=== PATIENT | male | born 1935 | race Caucasian/White ===

== ENCOUNTER 2016-12-29 20:46 | Emergency (ER) | payer MEDICARE, OTHER ==
[~2016-12-29] VITALS: Ht 167.6 cm; Wt 81.0 kg
[~2016-12-29 20:46] MED LIST: AMLO5TAB4 PO; DUTA0.5C PO; LOSA50TA2 PO; OMEP40CA3 PO; TAMS-14
[2016-12-29 20:58] VITALS: Ht 167.6 cm; Wt 81.0 kg
[2016-12-29] MEDS ORDERED: IBUPROFEN 600 MG TAB PO ONE (21:30)
--- NOTE | 2016-12-29 22:26 | ERA ---
ER Documentation Chief Complaint Date/Time DATE: 12/29/16 TIME: 22:25 Chief Complaint cough and fever HPI The patient is a 81-year-old male, presenting to the ER because of cough, subjective fever for 3 days. He denies headache, neck pain, chest pain, dyspnea , chest pain, abdominal pain, vomiting, dysuria, diarrhea. He does not smoke nor drink Past medical history: Hypertension, BPH Past medical history: Cholecystectomy, history of ERCP ROS All systems reviewed and are negative except as per history of present illness. Medications Home Meds Active Scripts Benzonatate* (Tessalon Perle*) 100 Mg Capsule, 100 MG PO TID, #14 CAP Prov:DESIRE BATRES MD 12/30/16 Azithromycin* (Zithromax*) 250 Mg Tablet, 250 MG PO .ZPACK DIRECTED, #6 TAB TAKE 500 MG (2 TABS) THE FIRST DAY THEN 250 MG (1 TAB) DAYS 2-5 Prov:DESIRE BATRES MD 12/30/16 Losartan Potassium* (Cozaar*) 50 Mg Tab, 50 MG PO DAILY for 30 Days Prov:KAREN HENSLEY MD 06/02/14 Amlodipine Besylate* (Norvasc*) 5 Mg Tab, 5 MG PO DAILY for 30 Days Prov:KAREN HENSLEY MD 06/02/14 Reported Medications Dutasteride* (Avodart*) 0.5 Mg Capsule, 0.5 MG PO DAILY 11/07/11 Omeprazole* (Prilosec*) 40 Mg Capsule.dr, 40 MG PO DAILY 11/07/11 Tamsulosin Hcl* (Flomax*) 0.4 Mg Cap.sr.24h 10/16/09 Allergies Allergies: Coded Allergies: No Known Drug Allergy (Verified Allergy, Unknown, 05/28/14) PMhx/Soc History of Surgery: Yes (gallbladder removal) Anesthesia Reaction: No Hx Neurological Disorder: No Hx Respiratory Disorders: No Hx Cardiac Disorders: No Hx Psychiatric Problems: No Hx Miscellaneous Medical Probl: Yes (S/P multiple ERCPs D/T stone obstruction) Hx Alcohol Use: No Hx Substance Use: No Hx Tobacco Use: No Physical Exam Vitals Vital Signs Date Time Temp Pulse Resp B/P Pulse Ox O2 Delivery O2 Flow Rate FiO2 12/29/16 23:10 55 19 125/76 93 Nasal Cannula 2.0 12/29/16 22:11 59 135/ 12/29/16 22:11 Nasal Cannula 2.0 12/29/16 22:11 Nasal Cannula 2 12/29/16 20:58 99.2 64 18 143/67 95 Physical Exam Const: No acute distress. Head: Atraumatic. Eyes: Normal Conjunctiva. ENT: Normal External Ears, Nose and Mouth. Neck: Full range of motion. No meningismus. Resp: Clear to auscultation bilaterally. Cardio: Regular rate and rhythm. Abd: Soft, non distended, normal bowel sounds, non tender. Skin: No petechiae or rashes. Back: No midline or flank tenderness. Ext: No cyanosis, or edema. Neur: Awake and alert. No focal deficit Psych: Normal Mood and Affect. Result Diagram: 12/29/16220712/29/162207 Results 24 hrs Laboratory Tests Test 12/29/16 22:08 12/30/16 00:09 White Blood Count 15.110^3/ul Red Blood Count 5.4710^6/ul Hemoglobin 15.2g/dl Hematocrit 45.7% Mean Corpuscular Volume 83.5fl Mean Corpuscular Hemoglobin 27.8pg Mean Corpuscular Hemoglobin Concent 33.3g/dl Red Cell Distribution Width 14.1% Platelet Count 86550^3/UL Mean Platelet Volume 11.6fl Neutrophils % 70.9% Lymphocytes % 19.9% Monocytes % 7.8% Eosinophils % 0.4% Basophils % 0.3% Nucleated Red Blood Cells % 0.0/100WBC Neutrophils # 10.710^3/ul Lymphocytes # 3.010^3/ul Monocytes # 1.210^3/ul Eosinophils # 0.110^3/ul Basophils # 0.010^3/ul Nucleated Red Blood Cells # 0.010^3/ul Prothrombin Time 14.5Sec Prothrombin Time Ratio 1.1 INR International Normalized Ratio 1.13 Activated Partial Thromboplast Time 28.4Sec Sodium Level 146mmol/L Potassium Level 3.7mmol/L Chloride Level 103mmol/L Carbon Dioxide Level 24mmol/L Anion Gap 23 Blood Urea Nitrogen 17mg/dl Creatinine 1.41mg/dl Glucose Level 110mg/dl Lactic Acid Level 1.8mmol/L Calcium Level 9.8mg/dl Total Bilirubin 0.8mg/dl Direct Bilirubin 0.00mg/dl Indirect Bilirubin 0.8mg/dl Aspartate Amino Transf (AST/SGOT) 49IU/L Alanine Aminotransferase (ALT/SGPT) 30IU/L Alkaline Phosphatase 205IU/L Troponin I < 0.012ng/ml Total Protein 7.5g/dl Albumin 4.5g/dl Globulin 3.00g/dl Albumin/Globulin Ratio 1.50 Lipase 78U/L Bedside Urine pH (LAB) 5.0 Bedside Urine Protein (LAB) 2+ Bedside Urine Glucose (UA) Negative Bedside Urine Ketones (LAB) 2+ Bedside Urine Blood 2+ Bedside Urine Nitrite (LAB) Negative Bedside Urine Leukocyte Esterase (L Negative Current Medications Medications (Trade) Dose Ordered Sig/Thor Route PRN Reason Start Time Stop Time Status Last Admin Dose Admin Ibuprofen (Motrin) 600 mg ONCE ONCE PO 12/29/16 21:30 12/29/16 21:31 DC 12/29/16 22:38 Procedures/MDM EKG: Read by emergency physician Rate/Rhythm: Normal Sinus Rhythm 60 beats/min QRS, ST, T-waves: No ST elevation, no T inversion, LAD Impression: Abnormal EKG [place] [id number] [facility] Main Line: [phone] DIAGNOSTIC IMAGING REPORT Patient: ABELARDO MOTA : 1935 Age: 81 Sex: M MR #: [id number] DOS: 12/29/162128 Ordering MD: SANJUANA JEWELL MD Location: E/R Room/Bed: PROCEDURE: XR Chest. CLINICAL INDICATION: Cough. Sepsis. TECHNIQUE: Single frontal view. COMPARISON: 05/28/2014. FINDINGS: The lungs are clear. The heart is mildly enlarged. There is no pleural effusion. There is no pneumothorax. IMPRESSION: 1. Mild cardiomegaly. 2. Clear lungs. RPTAT: QQ .Pranay Barbosa MD, MD Date Time Electronically viewed and signed by .Pranay Barbosa MD, MD on 12/29/2016 22:44 .R/ CC: SANJUANA JEWELL MD MEDICAL MAKING DECISION: The patient is a 81-year-old male, presenting with acute bronchitis, thrombocytopenia, renal insufficiency. He is stable for outpatient follow-up The differential diagnoses considered include but are not limited to asthma, COPD, pneumonia, pulmonary embolus, pleural effusion, congestive heart failure. Departure Diagnosis: Primary Impression: Bronchitis Additional Impressions: Thrombocytopenia Renal insufficiency Condition: Good Comments He was discharged with Zithromax and Tessalon I discussed the findings with the patient. I advised the patient to follow-up with the primary physician in about 1-2 days, sooner if needed and return if any concern. DESIRE BATRES MD Dec 29, 2016 22:26
[2016-12-29 22:27] LABS: ADD SCAN DIFF NO
[2016-12-29 22:38] LABS: BASOPHILS % 0.3 % (0.0-2.0); EOSINOPHILS # 0.1 10^3/ul (0.0-0.5); EOSINOPHILS % 0.4 % (0.0-7.0); HEMATOCRIT 45.7 % (42.0-52.0); HEMOGLOBIN 15.2 g/dl (14.0-18.0); LYMPHOCYTES % 19.9 % (15.0-51.0); MEAN CORPUSCULAR HEMOGLOBIN 27.8 pg (29.0-33.0); MEAN CORPUSCULAR HGB CONC 33.3 g/dl (32.0-37.0); MEAN CORPUSCULAR VOLUME 83.5 fl (82.0-101.0); MEAN PLATELET VOLUME 11.6 fl (7.4-10.4); MONOCYTE # 1.2 10^3/ul (0.3-0.9); MONOCYTES % 7.8 % (0.0-11.0); NEUTROPHIL # 10.7 10^3/ul (1.6-7.5); NEUTROPHILS % 70.9 % (39.0-77.0); PLATELET COUNT 134 10^3/UL (140-415); RED BLOOD COUNT 5.47 10^6/ul (4.70-6.10); RED CELL DISTRIBUTION WIDTH 14.1 % (11.5-14.5); WHITE BLOOD COUNT 15.1 10^3/ul (4.8-10.8)
--- NOTE | 2016-12-29 22:44 | RADRPT ---
PROCEDURE: XR Chest. CLINICAL INDICATION: Cough. Sepsis. TECHNIQUE: Single frontal view. COMPARISON: 05/28/2014. FINDINGS: The lungs are clear. The heart is mildly enlarged. There is no pleural effusion. There is no pneumothorax. IMPRESSION: 1. Mild cardiomegaly. 2. Clear lungs. RPTAT: QQ .Pranay Barbosa MD, MD Date Time Electronically viewed and signed by .Pranay Barbosa MD, MD on 12/29/2016 22:44 .R/
[2016-12-29 22:57] LABS: INR 1.13; PARTIAL THROMBOPLASTIN TIME 28.4 Sec (25.0-35.0); PROTIME 14.5 Sec (12.2-14.2); PT RATIO 1.1
[2016-12-29 23:05] LABS: ALANINE AMINOTRANSFERASE 30 IU/L (13-69); ALBUMIN 4.5 g/dl (3.3-4.9); ALKALINE PHOSPHATASE 205 IU/L (42-121); ANION GAP 23 (8-16); ASPARTATE AMINO TRANSFERASE 49 IU/L (15-46); BILIRUBIN,INDIRECT 0.8 mg/dl (0-1.1); BILIRUBIN,TOTAL 0.8 mg/dl (0.2-1.3); BLOOD UREA NITROGEN 17 mg/dl (7-20); CALCIUM 9.8 mg/dl (8.4-10.2); CARBON DIOXIDE 24 mmol/L (21-31); CHLORIDE 103 mmol/L (97-110); CREATININE 1.41 mg/dl (0.61-1.24); GLUCOSE 110 mg/dl (70-220); POTASSIUM 3.7 mmol/L (3.5-5.1); SODIUM 146 mmol/L (135-144); TOTAL PROTEIN 7.5 g/dl (6.1-8.1)
[2016-12-29 23:35] LABS: TROPONIN-I < 0.012 ng/ml (0.00-0.12)
[2016-12-30 00:05] LABS: URINE BLOOD (Dip) POC 2+ (NEGATIVE)
[2016-12-30] MEDS ORDERED: AZIT250T94 PO (00:17)
[2016-12-30] MEDS ORDERED: BENZ100C70 PO (00:18)
[2016-12-30] MEDS ORDERED: DICL75TA2 PO (00:29)
[2016-12-30] MEDS ORDERED: HYD25 PO (00:29)
[2016-12-30 00:31] LABS: ADD UMIC YES; UR ASCORBIC ACID NEGATIVE (NEGATIVE); UR BACTERIA FEW /HPF (NONE SEEN); UR BILIRUBIN (Dip) NEGATIVE (NEGATIVE); UR BLOOD (Dip) 2+ mg/dL (NEGATIVE); UR CLARITY SLIGHTLY CLOUDY (CLEAR); UR COLOR AMBER (YELLOW); UR GLUCOSE (Dip) NEGATIVE (NEGATIVE); UR KETONES (Dip) 1+ mg/dL (NEGATIVE); UR LEUKOCYTE ESTERASE (Dip) NEGATIVE Leu/ul (NEGATIVE); UR MUCUS MANY /HPF (NONE SEEN); UR NITRITE (Dip) NEGATIVE (NEGATIVE); UR RBC 4 /HPF (0-5); UR SPECIFIC GRAVITY (Dip) 1.025 (1.003-1.030); UR TOTAL PROTEIN (Dip) 2+ mg/dl (NEGATIVE); UR UROBILINOGEN (Dip) 2+ mg/dL (NEGATIVE)
[2016-12-30 00:46] VITALS: BP 131/73; PULSE 63; RESP 18; TEMP 97.8
== END 2016-12-30 00:45 | disposition home or self-care (01) ==
LOC: E/R 20:46
DX: J20.9 Acute bronchitis, unspecified (principal); D69.6 Thrombocytopenia, unspecified; N28.9 Disorder of kidney and ureter, unspecified; I10 Essential (primary) hypertension; R40.2142 Coma scale, eyes open, spontaneous, at arrival to emergency department; R40.2252 Coma scale, best verbal response, oriented, at arrival to emergency department; R40.2362 Coma scale, best motor response, obeys commands, at arrival to emergency department
CPT/HCPCS: 36415; 71010; 80053; 81001; 81003; 83605; 83690; 84484; 85025; 85610; 85730; 87040; 87086; 93005